=== PATIENT | female | born 1980 | race Caucasian/White ===

== ENCOUNTER → 2017-08-15 | Outpatient (CLI) | payer BC ==
[~2017-08-15] MED LIST: ACET500; PENVK500 PO
== END | disposition home or self-care (01) ==
LOC: LAB SHORT 17:15 → LAB 17:15
DX: N39.0 Urinary tract infection, site not specified (principal)
CPT/HCPCS: 87086

== ENCOUNTER → 2020-08-11 | Outpatient (CLI) | payer BC | LOC: LAB 14:45 → LAB SHORT 14:45 | DX: R30.0 Dysuria (principal) | CPT/HCPCS: 87086 ==

== ENCOUNTER → 2022-02-01 | Outpatient (CLI) | payer BC | LOC: LAB 12:45 → LAB SHORT 12:45 | DX: L08.9 Local infection of the skin and subcutaneous tissue, unspecified (principal) | CPT/HCPCS: 87070; 87205 ==

== ENCOUNTER 2024-02-15 06:08 | Day surgery (SDC) | payer BC ==
[2024-02-15] VITALS (19 sets, daily range): BP systolic 102–156; BP diastolic 43–69
[~2024-02-15] VITALS: Ht 157.5 cm; Wt 110.3 kg
[~2024-02-15 06:08] MED LIST changes: +Aldactone50 MG PO; +MOUNJARO10 MG/0.5 SQ; +OMEP20ER PO; +PROG100 PO; +THYR60 PO
[2024-02-15] MEDS ORDERED: Lactated Ringer's 1,000 ML IV SCH ×2 (06:20→09:40)
[2024-02-15] MEDS ORDERED: CeFAZolin Sodium 2,000 MG in NS 100 ML IV SCH (06:20)
[2024-02-15] MEDS ORDERED: Sugammadex Sodium 200 MG/2ML SDV (100 MG/ML) ONE (06:57)
[2024-02-15] MEDS ORDERED: propofoL 20 ML IV ONE (06:57)
[2024-02-15] MEDS ORDERED: FentaNYL Citrate 50 MCG/ML 2 ML Injection ONE ×2 (06:57→10:10)
[2024-02-15] MEDS ORDERED: Ondansetron HCl 2 MG / ML 2ML Vial ONE (06:59)
[2024-02-15] MEDS ORDERED: Rocuronium Bromide 10 MG/ML 5ML Injection IV ONE (06:59)
[2024-02-15] MEDS ORDERED: Dexamethasone Sod Phos 10 MG/ML 1ML VIAL ONE (06:59)
[2024-02-15] MEDS ORDERED: EpiNEPhrine 1 MG/1 ML 1ML Vial ONE (07:06)
[2024-02-15] MEDS ORDERED: Bupivacaine 0.5% HCl 5 MG/ML 30MLVIAL ONE (07:06)
[2024-02-15] MEDS ORDERED: Midazolam HCl 1MG / ML 2ML Vial IV ONE (07:15)
[2024-02-15] MEDS ORDERED: Lidocaine 1%-Epineph 1:100000 20 ML MDV ONE (07:33)
[2024-02-15] MEDS ORDERED: Glycopyrrolate 0.2 MG/ML 5ML VIAL ONE (07:40)
[2024-02-15] MEDS ORDERED: HYDROmorphone HCl/Pf 1MG SYR ONE ×2 (08:01→10:11)
[2024-02-15] MEDS ORDERED: Estradiol Vag Cream 0.1 MG/G 42.5 GM Tube VAG ONE (09:05)
[2024-02-15] MEDS ORDERED: Acetaminophen 325 MG TABLET PO PRN (09:45)
[2024-02-15] MEDS ORDERED: OxyCODONE HCL 5 MG TAB PO PRN (09:45)
[2024-02-15] MEDS ORDERED: Ondansetron HCl 2 MG / ML 2ML Vial IV PRN (09:45)
[2024-02-15] MEDS ORDERED: OxyCODONE 10/Acetamin 325 TABLET PO PRN (09:45)
[2024-02-15] MEDS ORDERED: DiphenhydrAMINE HCL 25 MG Cap PO PRN (09:45)
[2024-02-15] MEDS ORDERED: Ibuprofen 400 MG Tab PO PRN (09:45)
[2024-02-15] MEDS ORDERED: fentaNYL citrate 20 MCG/ML 30MLSYR IV PRN (09:50)
[2024-02-15] MEDS ORDERED: NS 250 ML IV PRN (10:30)
[2024-02-15] MEDS ORDERED: Ketorolac Tromethamine 30mg Vial IV SCH (12:00)
--- NOTE | 2024-02-15 19:27 | NUR ---
SHIFT SUMMARY POD 0 LAP TO OPEN ABD HYSTER, A/OX4, VSS, TOLERATING PO, PAIN MANAGED WITH CIRCUS PERFORMER AND SCHEDULED TORADOL PER EMAR, DISCUSSED TENTATIVE PLAN FOR HER STAY INCLUDING: CIRCUS PERFORMER, SANZ, VAGINAL PACKING, OB ROUNDING IN THE MORNING, AND DISCHARGE. YAHAIRA PAD WAS CLEAN, SMALL AMT DRAINAGE NOTED ON ABD DRESSING. NO ACUTE EVENTS THIS SHIFT, CALL LIGHT IN REACH.
--- NOTE | 2024-02-16 04:21 | NUR ---
SHIFT SUMMARY NAS WAS ALERT AND FULLY ORIENTED ON ASSESMENT. PT MEDIPORE DRESSING WAS MODERATELY SATURATED WITH SS DRAINAGE, DRESSING CHANGED. VAGINAL PACKING AND SANZ IN PLACE, ORDERS TO REMOVE IN AM. PT COMFORT MODERATELY WELL CONTROLLED WITH ACTIVITIES ASSISTANT FENTANYL AND TORRADOL. NO ACUTE EVENTS TONIGHT, NO NOTED CHANGES TO PT CONDITION.
[2024-02-16 05:17] VITALS: BP 103/50
[2024-02-16 05:48] LABS: BASOPHILS ABSOLUTE AUTO 0.01 K/mm3 (0.00-0.23); BASOPHILS PERCENT AUTO 0 % (0-2); EOSINOPHILS PERCENT AUTO 0 % (0-6); Hematocrit 30.2 % (33.0-51.0); Hemoglobin 10.5 g/dL (11.5-16.0); IMMATURE GRAN ABSOLUTE AUTO 0.03 K/mm3 (0.00-0.10); IMMATURE GRAN PERCENT AUTO 0 % (0-1); LYMPHOCYTES ABSOLUTE AUTO 1.16 K/mm3 (0.84-5.20); LYMPHOCYTES PERCENT AUTO 13 % (21-46); MONOCYTES ABSOLUTE AUTO 0.49 K/mm3 (0.16-1.47); MONOCYTES PERCENT AUTO 5 % (4-13); Mean Corpuscular HGB 31.8 pg (26.0-34.0); Mean Corpuscular HGB Conc 34.8 g/dL (31.5-36.5); Mean Corpuscular Volume 92 fL (80-100); Mean Platelet Volume 10.2 fL (9.1-12.4); NEUTROPHILS ABSOLUTE AUTO 7.54 K/mm3 (1.96-9.15); NEUTROPHILS PERCENT AUTO 82 % (41-73); Platelet Count 201 K/mm3 (150-400); RDW Standard Deviation 40.4 fL (35.1-46.3); White Blood Cell Count 9.23 K/mm3 (4.00-11.30)
[2024-02-16 07:05] VITALS: BP 108/55
--- NOTE | 2024-02-16 09:34 | NUR ---
MORNING NOTE THIS RN ASSUMED CARE AT APPROX 0715. PATIENT ALERT AND ORIENTED X4 - COMMUNICATING NEEDS EFFECTIVELY. POD 1 TOTAL ABD HYSTER - TRANSVERSE ABD INCISION C/D/I WITH MEDIPORE DRESSING. X1 LAP SITE WITH GAUZE AND TEGADERM DRESSING C/D/I. MANAGING PAIN WITH ORGAN PIPE MAKER METAL - ATTEMPTING TO TRANSITION FROM ORGAN PIPE MAKER METAL TO PO MANAGEMENT ABLE. ENCOURAGING MOBILITY - PATIENT DECLINED TRANSFER TO RECLINER CHAIR THIS MORNING. SANZ CATHETER AND VAGINAL PACKING REMOVED PER MD ORDER. MINIMAL VAGINAL BLEEDING ON PAD. KPAD IN PLACE. CALL LIGHT IN REACH.
[2024-02-16 14:34] VITALS: BP 108/57
--- NOTE | 2024-02-16 16:38 | NUR ---
SHIFT SUMMARY SEE MORNING NOTE - NO ACUTE CHANGES SINCE. VSS. POD 1 ABD HYSTER - DRESSINGS REMAIN C/D/I. TRANSITIONED OFF OF DEALER DEVELOPMENT MANAGER - PAIN TOLERABLE WITH ORAL MEDICATION AND KPAD. SCANT BLEEDING ON YAHAIRA PAD. AMBULATING IN ROOM AND HALLWAY. X1 VOID SINCE SANZ REMOVAL THIS MORNING - MILD IRRITATION WITH VOID. TOLERATING PO INTAKE. MD YU AT BEDSIDE THIS AFTERNOON - PATIENT CLEAR TO DC HOME ONCE VOIDING. PATIENT REQUESTING TO STAY OVERNIGHT FOR FURTHER PAIN MANAGEMENT. UP IN RECLINER CHAIR MAJORITY OF THE DAY. CALL LIGHT IN REACH. WILL CONTINUE TO MONITOR AND REPORT TO ONCOMING RN.
[2024-02-16 19:51] VITALS: BP 115/56
--- NOTE | 2024-02-17 04:11 | NUR ---
SHIFT SUMMARY NAS WAS ALERT AND FULLY ORIENTED ON ASSESMENT. PT ABLE TO AMBULATE INDEPENDENTLY, AND VOID SPONTANEOUSLY. PAIN MODERATELY WELL CONTROLLED WITH PO MEDS. INSCISION DRESSING C/D/I. TOLERATING PO INTAKE. NO ACUTE EVENTS TONIGHT, NO NOTED CHANGES TO PT CONDITION. PT RESTING WITH CALL LIGHT IN REACH.
[2024-02-17 04:38] VITALS: BP 108/46
[2024-02-17 07:10] VITALS: BP 113/58
[2024-02-17 13:45] VITALS: BP 126/77
--- NOTE | 2024-02-17 15:15 | NUR ---
DISCHARGE NOTE PT IS IND IN ROOM, AMBULATING HALLWAYS, VOIDING APPROPRIATELY, TOLERATING REG DIET. DRESSINGS CHANGED TODAY, C/D/I, PT SENT HOME W/ DRESSING CHANGES IF NEEDED. PAIN IS WELL CONTROLLED W/ PAIN MEDS PER EMAR, PT DENIES NAUSEA. SCANT VAG BLEEDING. VSS. PT STATES SHE HAS SCRIPTS ALREADY FILLED AT HOME. PT DC'D HOME IN STABLE CONDITION W/ BELONGINGS.
== END 2024-02-17 13:45 | disposition home or self-care (01) ==
LOC: ORSCMMR 06:08 → ORD 07:30 → ORSCMMR 07:30 → ORD 08:00 → SURS 10:24 → ORSCMMR 02-17 13:45 → SURS 02-17 13:45
PROVIDERS: Obstetrics & Gynecology
PROC: 0UT7FZZ Resection of Bilateral Fallopian Tubes, Via Natural or Artificial Opening With Percutaneous Endoscopic Assistance (ICD-10-PCS; principal; 2024-02-15 07:30)
PROC: 0UT9FZZ Resection of Uterus, Via Natural or Artificial Opening With Percutaneous Endoscopic Assistance (ICD-10-PCS; principal; 2024-02-15 07:30)
PROC: 0JQC0ZZ Repair Pelvic Region Subcutaneous Tissue and Fascia, Open Approach (ICD-10-PCS; principal; 2024-02-15 07:30)
DX: N93.8 Other specified abnormal uterine and vaginal bleeding (principal); R93.89 Abnormal findings on diagnostic imaging of other specified body structures; R10.2 Pelvic and perineal pain; N81.6 Rectocele; D26.1 Other benign neoplasm of corpus uteri; D25.9 Leiomyoma of uterus, unspecified; N80.03 Adenomyosis of the uterus; N83.8 Other noninflammatory disorders of ovary, fallopian tube and broad ligament; K21.9 Gastro-esophageal reflux disease without esophagitis; E03.9 Hypothyroidism, unspecified; E66.01 Morbid (severe) obesity due to excess calories; Z68.41 Body mass index [BMI] 40.0-44.9, adult; Z79.899 Other long term (current) drug therapy
CPT/HCPCS: 36415; 85025; 86850; 86900; 86901; 88307; A9270; J0171; J0690; J1100; J1171; J1885; J2250; J2405; J2704; J3010; J7050; J7120